=== PATIENT | female | born 1985 | race Caucasian/White ===

== ENCOUNTER 2022-08-19 05:13 | Emergency (ER) | payer OTHER, SELFPAY ==
[2022-08-19 05:33] VITALS: BP 103/61; PULSE 78; RESP 18; TEMP 36.5; O2SAT 98; BMI 22.9
--- NOTE | 2022-08-19 05:37 | DI.CT.S_ITS ---
PROCEDURE: CT ABDOMEN PELVIS W CON INDICATIONS: LLQ abd pain, hx of Crohn's TECHNIQUE: After the administration of intravenous contrast, axial sections acquired from the lung bases to the pubic symphysis. Coronal and sagittal reformats were performed. For radiation dose reduction, the following was used: automated exposure control, adjustment of mA and/or kV according to patient size. COMPARISON: None. FINDINGS: Lower thorax: The lung bases are clear. Heart size normal. No hiatal hernia. Liver: Normal in size and attenuation. No contour deformity present. Biliary system: Calcified stones noted in the lumen of the gallbladder. No pericholecystic inflammatory change. No intra or extrahepatic bile duct dilation. Pancreas: Unremarkable without mass or inflammation evident. Spleen: Normal in size and density. Adrenals: Normal morphology and density. Reproductive system: Unremarkable as visualized. Urinary system: Normal renal size and attenuation. No renal calculi, hydronephrosis, or solid mass present. Urinary bladder unremarkable. Gastrointestinal system: The bowel is unremarkable without evidence of bowel obstruction or inflammation. The stomach appears unremarkable. Moderate fecal debris throughout the colon Appendix: Normal appendix identified. No evidence of appendicitis. Peritoneal spaces: No mesenteric or retroperitoneal adenopathy. No free air. No free fluid. Vasculature: The IVC, aorta and iliac vasculature are unremarkable. Abdominal wall: Abdominal wall intact without evidence of ventral or inguinal hernias. Musculoskeletal: Normal bone mineralization. No acute fractures. IMPRESSION: 1. Moderate fecal debris throughout the colon. No obstruction. 2. Cholelithiasis without CT evidence of acute cholecystitis Note: Final report is concordant with preliminary interpretation by [facility] Approved by: Amos Irby M.D. on 08/19/2022 at 9:04
--- NOTE | 2022-08-19 05:37 | ED.GENADULT ---
HPI - General Adult <Karan Payton DO - Last Filed: 08/19/22 17:58> General Chief complaint: Abdominal Pain Stated complaint: PELVIC PAIN Time Seen by Provider: 08/19/22 05:23 Source: patient Mode of arrival: Ambulatory History of Present Illness HPI narrative: Patient is a 36-year-old female who yesterday started to have left-sided lower abdominal/pelvic discomfort. Is on day 3 her menstrual cycle. She states this is different from her menstrual cramps. She is having vaginal bleeding because she is on her menstrual cycle. No specific urinary symptoms. No change in bowel habits. She does have a history of Crohn's disease. She went to the walk-in clinic yesterday for the symptoms. Sent home with diclofenac pills. She was told that potentially she had a kidney stone or potentially an ovarian cyst and was told that if her symptoms worsen she needs to come to the emergency department. States the pain does seem to come and go in waves. At the time of my exam she states she was not having any discomfort. No prior abdominal surgeries. Related Data Allergies Allergy/AdvReac Type Severity Reaction Status Date / Time misoprostol [From Cytotec] Allergy Verified 08/19/22 05:37 Review of Systems <DO Pato Wooten Last Filed: 08/19/22 17:58> Constitutional Constitutional: Reports system reviewed and no additional complaints, except as documented Respiratory Respiratory: Reports system reviewed and no additional complaints, except as documented Gastrointestinal Gastrointestinal: Reports system reviewed and no additional complaints, except as documented Genitourinary Genitourinary: Reports system reviewed and no additional complaints, except as documented Integumentary/Breasts Skin/Breast: Reports system reviewed and no additional complaints, except as documented Hematologic/Lymphatic On Anticoagulants: No Patient History <DO Pato Wooten Last Filed: 08/19/22 17:58> Medical History Crohn's disease Exam <DO Pato Wooten Last Filed: 08/19/22 17:58> Initial Vital Signs Initial Vital Signs: Vital Signs Temperature 97.7 F 08/19/22 05:33 Pulse Rate 78 08/19/22 05:33 Respiratory Rate 18 08/19/22 05:33 Blood Pressure 103/61 08/19/22 05:33 Pulse Oximetry 98 08/19/22 05:33 Oxygen Delivery Method Room Air 08/19/22 05:33 Const General: cooperative, comfortable and No ill appearing HENMT Head: normal to inspection and normocephalic Resp Effort & Inspection: normal respiratory effort Auscultation: clear to auscultation bilaterally Cardio Rate: regular rate Rhythm: regular rhythm GI Inspection: normal to inspection Palpation: soft, No firm and No tender Back/Spine/Pelvis Back: No CVA tenderness Skin General: no rashes or lesions noted Neuro General: patient alert, patient awake and moves all extremities Extrem General: normal to inspection and capillary refill normal <DO Pato Jamison Last Filed: 08/19/22 09:08> Initial Vital Signs Initial Vital Signs: Vital Signs Temperature 97.7 F 08/19/22 05:33 Pulse Rate 78 08/19/22 05:33 Respiratory Rate 18 08/19/22 05:33 Blood Pressure 103/61 08/19/22 05:33 Pulse Oximetry 98 08/19/22 05:33 Oxygen Delivery Method Room Air 08/19/22 05:33 Course <DO Pato Wooten Last Filed: 08/19/22 17:58> Orders Ordered: Discontinued Medications Ketorolac Tromethamine (Ketorolac 30 Mg/Ml Vial) 15 mg IV NOW ONE Stop: 08/19/22 07:58 Last Admin: 08/19/22 08:04 Dose: 15 mg Documented By: NR Vital Signs Vital signs: Vital Signs - 8 hr 08/19/22 05:33 Temperature 97.7 F Pulse Rate 78 Respiratory Rate 18 Blood Pressure 103/61 Pulse Oximetry 98 Oxygen Delivery Method Room Air <DO Pato Jamison Last Filed: 08/19/22 09:08> Orders Ordered: Discontinued Medications Ketorolac Tromethamine (Ketorolac 30 Mg/Ml Vial) 15 mg IV NOW ONE Stop: 08/19/22 07:58 Last Admin: 08/19/22 08:04 Dose: 15 mg Documented By: NR Vital Signs Vital signs: Vital Signs - 8 hr 08/19/22 05:33 Temperature 97.7 F Pulse Rate 78 Respiratory Rate 18 Blood Pressure 103/61 Pulse Oximetry 98 Oxygen Delivery Method Room Air Medical Decision Making <DO Pato Wooten Last Filed: 08/19/22 17:58> Lab Data Lab results reviewed: Yes I reviewed the patient's lab results. 08/19/22 05:45 08/19/22 05:45 Labs: Lab Results 08/19/22 08/19/22 08/19/22 Range/Units 05:25 05:45 05:45 WBC 8.5 (4.5-11.0) X10^3/uL RBC 4.33 (4.0-5.2) X10^6/uL Hgb 12.6 (12.0-16.0) g/dL Hct 37.0 (36-46) % MCV 85.6 (80-100) fL MCH 29.2 (26-34) PG MCHC 34.1 (30-36) % RDW 13.4 (11.6-14.8) % Plt Count 228 (150-400) X10^3/uL Neut % (Auto) 65.7 (50-75) % Lymph % (Auto) 24.3 L (25-40) % Cassia % (Auto) 7.2 (3-14) % Eos % (Auto) 2.4 (2-4) % Baso % (Auto) 0.4 (0-2) % Neut # (Auto) 5600 (6710-5700) /uL Lymph # (Auto) 2100 (4780-6756) /uL Cassia # (Auto) 600 (0-900) /uL Eos # (Auto) 200 (0-450) /uL Baso # (Auto) 0 (0-100) /uL Sodium 138 (137-145) mmol/L Potassium 3.3 L (3.4-5.1) mmol/L Chloride 107 (98-107) mmol/L Carbon Dioxide 22 (22-32) mmol/L BUN 15 (7-17) mg/dL Creatinine 0.64 (0.52-1.04) mg/dL Estimated GFR > 60 (>60) mL/min BUN/Creatinine Ratio 23.4 H (6-22) Glucose 101 H (70-100) mg/dL Calcium 8.7 (8.4-10.2) mg/dL Total Bilirubin 0.2 (0.2-1.3) mg/dL AST 19 (14-36) IU/L ALT 15 (<35) IU/L Alkaline Phosphatase 60 (38-126) U/L Total Protein 7.0 (6.3-8.2) g/dL Albumin 4.4 (3.5-5.0) g/dL Globulin 2.6 (1.7-4.1) g/dL Albumin/Globulin Ratio 1.7 (1.0-2.8) Lipase 242 (23-300) U/L Urine RBC 1-5/hpf (0-5/HPF) Urine WBC 0-1/hpf (0-5/HPF) Ur Squamous Epith Cells 0-1 /hpf (0-5/HPF) Urine Bacteria Few (2-10) H (None) Ur Culture Indicated? Cult not indicated Point of Care Testing Test Results Negative Urine Dip Bedside Urine Glucose Negative Bedside Urine Bilirubin - Negative Bedside Urine Ketone - Negative Urine Specific [place] 1.015 Bedside Urine Occult Blood +++ Bedside Urine pH 6.0 Bedside Urine Protein - Negative Bedside Urine Urobilinogen - Negative Bedside Urine Nitrite - Negative Bedside Urine Leukocytes - Negative Esterase Point of care testing: Point of Care Testing Test Results Negative Urine Dip Bedside Urine Glucose Negative Bedside Urine Bilirubin - Negative Bedside Urine Ketone - Negative Urine Specific [place] 1.015 Bedside Urine Occult Blood +++ Bedside Urine pH 6.0 Bedside Urine Protein - Negative Bedside Urine Urobilinogen - Negative Bedside Urine Nitrite - Negative Bedside Urine Leukocytes - Negative Esterase MDM Narrative Medical decision making narrative: Patient does have colicky left lower quadrant abdominal pain this been going on for just over 24 hours. Her urine does have red blood cells. Her test was negative. On my exam her symptoms do seem to be more abdominal rather than adnexal. I discussed the plan of care. She denied the need for pain medicine or nausea medicine currently because she states that she is not having discomfort but this is what has been going on over the past 24 hours. We will start with a CT scan given her history of Crohn's disease and my higher concern for renal colic. She understands that if the CT scan is unremarkable we may have to follow-up with a pelvic ultrasound. Care turned over to Dr. Taylor to follow-up and disposition. <Afia Taylor, - Last Filed: 08/19/22 09:08> Lab Data Labs: Lab Results 08/19/22 08/19/22 08/19/22 Range/Units 05:25 05:45 05:45 WBC 8.5 (4.5-11.0) X10^3/uL RBC 4.33 (4.0-5.2) X10^6/uL Hgb 12.6 (12.0-16.0) g/dL Hct 37.0 (36-46) % MCV 85.6 (80-100) fL MCH 29.2 (26-34) PG MCHC 34.1 (30-36) % RDW 13.4 (11.6-14.8) % Plt Count 228 (150-400) X10^3/uL Neut % (Auto) 65.7 (50-75) % Lymph % (Auto) 24.3 L (25-40) % Cassia % (Auto) 7.2 (3-14) % Eos % (Auto) 2.4 (2-4) % Baso % (Auto) 0.4 (0-2) % Neut # (Auto) 5600 (1498-3484) /uL Lymph # (Auto) 2100 (5726-5702) /uL Cassia # (Auto) 600 (0-900) /uL Eos # (Auto) 200 (0-450) /uL Baso # (Auto) 0 (0-100) /uL Sodium 138 (137-145) mmol/L Potassium 3.3 L (3.4-5.1) mmol/L Chloride 107 (98-107) mmol/L Carbon Dioxide 22 (22-32) mmol/L BUN 15 (7-17) mg/dL Creatinine 0.64 (0.52-1.04) mg/dL Estimated GFR > 60 (>60) mL/min BUN/Creatinine Ratio 23.4 H (6-22) Glucose 101 H (70-100) mg/dL Calcium 8.7 (8.4-10.2) mg/dL Total Bilirubin 0.2 (0.2-1.3) mg/dL AST 19 (14-36) IU/L ALT 15 (<35) IU/L Alkaline Phosphatase 60 (38-126) U/L Total Protein 7.0 (6.3-8.2) g/dL Albumin 4.4 (3.5-5.0) g/dL Globulin 2.6 (1.7-4.1) g/dL Albumin/Globulin Ratio 1.7 (1.0-2.8) Lipase 242 (23-300) U/L Urine RBC 1-5/hpf (0-5/HPF) Urine WBC 0-1/hpf (0-5/HPF) Ur Squamous Epith Cells 0-1 /hpf (0-5/HPF) Urine Bacteria Few (2-10) H (None) Ur Culture Indicated? Cult not indicated Point of Care Testing Test Results Negative Urine Dip Bedside Urine Glucose Negative Bedside Urine Bilirubin - Negative Bedside Urine Ketone - Negative Urine Specific [place] 1.015 Bedside Urine Occult Blood +++ Bedside Urine pH 6.0 Bedside Urine Protein - Negative Bedside Urine Urobilinogen - Negative Bedside Urine Nitrite - Negative Bedside Urine Leukocytes - Negative Esterase Point of care testing: Point of Care Testing Test Results Negative Urine Dip Bedside Urine Glucose Negative Bedside Urine Bilirubin - Negative Bedside Urine Ketone - Negative Urine Specific [place] 1.015 Bedside Urine Occult Blood +++ Bedside Urine pH 6.0 Bedside Urine Protein - Negative Bedside Urine Urobilinogen - Negative Bedside Urine Nitrite - Negative Bedside Urine Leukocytes - Negative Esterase Imaging Data CT scan - abdomen/pelvis: Radiologist's Impression: Preliminary report. Increased stool burden. No significant diverticular disease or evidence of colitis. Nonspecific ileitis terminal ileum. Cholelithiasis without CT evidence of cholecystitis. No free air or abscess demonstrated. US - [employer]LE [employer]ER: Radiologist's Impression: PROCEDURE:? US PELVIC COMPLETE ? INDICATIONS:? LLQ PAIN ? TECHNIQUE:? Real-time scanning was performed of the pelvic organs, with image documentation.? Additional endovaginal scanning was necessary due to incomplete visualization of the adnexal and endometrial structures by transabdominal scanning.? ? COMPARISON:? [facility], CT, CT ABDOMEN PELVIS W CON, 08/19/2022, 6:23. ? FINDINGS:? ?? Uterus:? 9.2 x 3.8 x 6.4 cm.? The endometrium measures 2-3 mm.? Overall normal echotexture.? ? Ovaries:? The ovaries measure 2 cc in volume, with color and spectral flows documented. ? Other:? No pathologic free fluid. ? ? IMPRESSION:? No acute sonographic abnormality the pelvis. ? We strive to produce accurate, complete, and clear reports of imaging services. To assist us in improving patient care, this report was composed using standard report templates and voice recognition software. Therefore, it may contain abnormal punctuation, insertions and/or omissions. Occasional wrong-word or sound-alike substitutions may occur. Though we review the report and make efforts to correct it, we do recommend that the report be read carefully in proper context to recognize any text inaccuracies. ? ? Dictated by: Dillan Hills M.D. on 08/19/2022 at 8:27 ?? [facility] Narrative Medical decision making narrative: Patient does have colicky left lower quadrant abdominal pain this been going on for just over 24 hours. Her urine does have red blood cells. Her test was negative. On my exam her symptoms do seem to be more abdominal rather than adnexal. I discussed the plan of care. She denied the need for pain medicine or nausea medicine currently because she states that she is not having discomfort but this is what has been going on over the past 24 hours. We will start with a CT scan given her history of Crohn's disease and my higher concern for renal colic. She understands that if the CT scan is unremarkable we may have to follow-up with a pelvic ultrasound. Care turned over to Dr. Taylor to follow-up and disposition. Dr. Taylor: Patient seen evaluated by myself. She overall appears well but is having some left lower quadrant pain. She is tender in the left lower quadrant. CT does not show any cause for pain in the left lower quadrant. She does have increased stool burden patient reports that she rubs on the constipated side. Her Crohn's disease is controlled by diet she is not need medication for 8 years. She was diagnosed with Crohn's by [address] biopsies[address] does show nonspecific ileitis and the terminal ileum consistent with Crohns, but does not explain pain on the left lower quadrant. Ultrasound is ordered to rule out ovarian torsion abscess or cyst. Ultrasound is negative. Patient received Toradol which helped a lot pain. She reports she does have constant the patient issues this might be causing some of her pain. At this time blood work and imaging is overall reassuring. No explanation of pain. Patient updated on symptoms test results and when to return. Discharge Plan Departure Patient Disposition: Home Clinical Impression: Constipation, Crohn's disease Instructions: DI for Constipation Activity Restrictions/Additional Instructions: *You have been diagnosed with constipation *What to do: At this time pain may or may not be related to constipation. Blood work is overall reassuring. *Continue to take medications as directed Ibuprofen 600 mg every 6 hours if needed for [id number] pain. Do not take until 3pm today *Follow up with your primary care provider in 2-3 days or call [phone] *Return to ER if you should have increasing pain nausea vomiting fever or any new, worsening or concerning symptoms Stand Alone Forms: Patient Portal/API
[2022-08-19 06:07] LABS: Add Manual Diff / Slide Review NO; Basophils Absolute Auto 0 /uL (0-100); Basophils Percent Auto 0.4 % (0-2); Eosinophils Absolute Auto 200 /uL (0-450); Eosinophils Percent Auto 2.4 % (2-4); Hemoglobin 12.6 g/dL (12.0-16.0); Lymphocytes Absolute Auto 2100 /uL (1100-4500); Lymphocytes Percent Auto 24.3 % (25-40); Mean Corpuscular HGB Conc 34.1 % (30-36); Mean Corpuscular Hemoglobin 29.2 PG (26-34); Mean Corpuscular Volume 85.6 fL (80-100); Monocytes Absolute Auto 600 /uL (0-900); Monocytes Percent Auto 7.2 % (3-14); Neutrophils Absolute Auto 5600 /uL (1500-7000); Neutrophils Percent Auto 65.7 % (50-75); Platelet Count 228 X10^3/uL (150-400); Red Blood Cell Count 4.33 X10^6/uL (4.0-5.2); Red Cell Distribution Width 13.4 % (11.6-14.8); White Blood Cell Count 8.5 X10^3/uL (4.5-11.0)
[2022-08-19 06:17] LABS: Alanine Aminotransferase 15 IU/L (<35); Albumin 4.4 g/dL (3.5-5.0); Albumin Globulin Ratio 1.7 (1.0-2.8); Alkaline Phosphatase 60 U/L (38-126); Aspartate Aminotransferase 19 IU/L (14-36); BUN Creatinine Ratio 23.4 (6-22); Bilirubin Total 0.2 mg/dL (0.2-1.3); Blood Urea Nitrogen 15 mg/dL (7-17); Calcium 8.7 mg/dL (8.4-10.2); Carbon Dioxide 22 mmol/L (22-32); Chloride 107 mmol/L (98-107); Estimated Glomerular Filt Rate > 60 mL/min (>60); Globulin 2.6 g/dL (1.7-4.1); Glucose 101 mg/dL (70-100); HEMOLYSIS < 15 (0-50); Lipase 242 U/L (23-300); Potassium 3.3 mmol/L (3.4-5.1); Sodium 138 mmol/L (137-145)
[2022-08-19 07:14] LABS: Bacteria Urine Few (2-10); RBC Urine 1-5/HPF (0-5/HPF); Squamous Epithelial Cell Urine 0-1 /HPF (0-5/HPF); WBC Urine 0-1/HPF (0-5/HPF)
[2022-08-19 07:15] LABS: Culture Indicated Urine Cult Not Indicated
--- NOTE | 2022-08-19 07:19 | DI.US.S_ITS ---
PROCEDURE: US PELVIC COMPLETE INDICATIONS: LLQ PAIN TECHNIQUE: Real-time scanning was performed of the pelvic organs, with image documentation. Additional endovaginal scanning was necessary due to incomplete visualization of the adnexal and endometrial structures by transabdominal scanning. COMPARISON: [facility], CT, CT ABDOMEN PELVIS W CON, 08/19/2022, 6:23. FINDINGS: Uterus: 9.2 x 3.8 x 6.4 cm. The endometrium measures 2-3 mm. Overall normal echotexture. Ovaries: The ovaries measure 2 cc in volume, with color and spectral flows documented. Other: No pathologic free fluid. IMPRESSION: No acute sonographic abnormality the pelvis. We strive to produce accurate, complete, and clear reports of imaging services. To assist us in improving patient care, this report was composed using standard report templates and voice recognition software. Therefore, it may contain abnormal punctuation, insertions and/or omissions. Occasional wrong-word or sound-alike substitutions may occur. Though we review the report and make efforts to correct it, we do recommend that the report be read carefully in proper context to recognize any text inaccuracies. Dictated by: Dillan Hills M.D. on 08/19/2022 at 8:27 Approved by: Dillan Hills M.D. on 08/19/2022 at 8:28
[2022-08-19] MEDS: KETOROLAC 30 MG/ML VIAL 15 MG IV (08:04)
[2022-08-19 08:42] VITALS: BP 108/64; PULSE 56; RESP 18; O2SAT 100
== END 2022-08-19 08:44 | disposition home or self-care (01) ==
PROVIDERS: Emergency Medicine; Emergency Provider Emergency Medicine
DX: K59.00 Constipation, unspecified (principal); K50.90 Crohn's disease, unspecified, without complications
CPT/HCPCS: 74177; 76830; 76856; 80053; 81003; 81015; 81025; 83690; 85025; 96374; 99284; J1885; Q9967